=== PATIENT | male | born 2000 | race Caucasian/White ===

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

== ENCOUNTER 2020-03-10 07:33 | Emergency (ER) | payer MEDICAID, OTHER ==
[~2020-03-10] VITALS: Ht 170.2 cm; Wt 61.9 kg
[2020-03-10] MEDS ORDERED: ibuprofen tablet 400 MG TABLET PO ONE (09:10)
[2020-03-10 10:17] VITALS: BP 116/78
== END 2020-03-10 10:19 | disposition home or self-care (01) ==
LOC: ER 07:33
DX: S46.812A Strain of other muscles, fascia and tendons at shoulder and upper arm level, left arm, initial encounter (principal); Z88.0 Allergy status to penicillin; X50.9XXA Other and unspecified overexertion or strenuous movements or postures, initial encounter; Y93.89 Activity, other specified; Y92.89 Other specified places as the place of occurrence of the external cause; Y99.8 Other external cause status
CPT/HCPCS: 73030; 73080; 99284

== ENCOUNTER 2022-06-18 20:04 | Emergency (ER) | payer MEDICAID ==
[~2022-06-18] VITALS: Ht 170.2 cm; Wt 59.4 kg
[2022-06-18 20:25] VITALS: BP 176/117
[2022-06-18] MEDS ORDERED: NAPR-56 PO (21:30)
== END 2022-06-18 21:40 | disposition home or self-care (01) ==
LOC: ER 20:05
DX: S93.401A Sprain of unspecified ligament of right ankle, initial encounter (principal); F17.200 Nicotine dependence, unspecified, uncomplicated; Z88.0 Allergy status to penicillin; X50.1XXA Overexertion from prolonged static or awkward postures, initial encounter; Y93.89 Activity, other specified; Y92.89 Other specified places as the place of occurrence of the external cause; Y99.8 Other external cause status
CPT/HCPCS: 29515; 73610; 99283